=== PATIENT | male | born 1965 | race Caucasian/White ===

== ENCOUNTER 2017-04-26 07:30 | Day surgery (SDC) | payer OTHER ==
[2017-04-26] MEDS ORDERED: MIDAZOLAM HCL 2MG/2ML VIAL IV ONE (15:48)
[2017-04-26] MEDS ORDERED: PROPOFOL 10 MG/ML VIAL IV ONE (15:48)
[2017-04-26] MEDS ORDERED: LIDOCAINE 2% MDV (20MG/ML) 20ML VIAL IV ONE (15:48)
--- NOTE | 2017-04-29 12:30 | Operative Note ---
DATE OF SURGERY: 04/26/2017 SURGEON: James Harp MD OPERATION: COLONOSCOPY. INDICATIONS: This is a 51-year-old male with average risk for colorectal cancer who presented for screening colonoscopy. POSTOPERATIVE DIAGNOSES: 1. Segmental colitis involving the sigmoid colon, status post biopsy. 2. Otherwise normal colon and terminal ileum. ANESTHESIA: Sedation is per Anesthesia. Pulse oximetry was monitored throughout the procedure to maintain O2 saturation of 90% or greater. Supplemental oxygen was administered via nasal cannula. Cardiac and vital signs were monitored throughout the duration of the procedure, and they were stable. The procedure of colonoscopy and risks and alternatives of the procedure, including the risk of bleeding and perforation, among others, were explained to the patient who voiced understanding and agreed to have the procedure done. Physical examination was performed, and the patient was found stable for sedation. PROCEDURE: The patient was placed in the left lateral position. Sedation was initiated. A digital rectal exam was performed and showed some mild external hemorrhoids with no palpable rectal masses. An Olympus PCF-180AL colonoscope was then inserted into the rectum under direct visualization. It was advanced to the cecum without difficulty. The ileocecal valve and appendiceal orifice were identified and photographed. The colonic mucosa was carefully examined upon introduction of the colonoscope. The bowel preparation was poor. In the sigmoid colon was a segment of colonic mucosa that was diffusely erythematous with no specific ulcerations. There were no other lesions noted. The ileocecal valve was intubated and terminal ileum mucosa was inspected for about 10 cm and it appeared normal. The colonoscope was then withdrawn while carefully examining the colonic mucosal surfaces. No other lesions were noted. Multiple biopsies were obtained. In the rectum, retroflexion was performed and grade 1 internal hemorrhoids were noted. The colonoscope was then withdrawn and the procedure was terminated. The patient tolerated the procedure well without any immediate complications. He remained with stable vital signs and was transferred to the recovery room. RECOMMENDATIONS: 1. We will follow up on the biopsies. 2. He is to have repeat colonoscopy in 5 years given the suboptimal bowel preparation. Thank you for allowing me to participate in the care of your patient. CC: Dr. Onel GLEASON
== END 2017-04-26 09:35 | disposition home or self-care (01) ==
LOC: HOP 07:30
PROVIDERS: ATTEND Internal Medicine Gastroenterology
DX: Z12.11 Encounter for screening for malignant neoplasm of colon (principal); K50.10 Crohn's disease of large intestine without complications; K64.0 First degree hemorrhoids; K64.4 Residual hemorrhoidal skin tags; E78.00 Pure hypercholesterolemia, unspecified; E11.9 Type 2 diabetes mellitus without complications
CPT/HCPCS: 00810; G0121